=== PATIENT | male | born 1985 | race Caucasian/White ===

== ENCOUNTER 2017-02-28 12:59 | Emergency (ER) | payer OTHER ==
[~2017-02-28] VITALS: Ht 170.2 cm; Wt 101.2 kg
[~2017-02-28 12:59] MED LIST: PHEN95TA12
[2017-02-28 13:11] VITALS: BP 96/66
[2017-02-28] MEDS ORDERED: OXYcodone/APAP 5/325MG TABLET ONE (13:27)
[2017-02-28] MEDS ORDERED: OXYcodone/APAP 5/325MG TABLET PO ONE (13:30)
== END 2017-02-28 14:47 | disposition home or self-care (01) ==
LOC: ED 13:34
DX: S50.02XA Contusion of left elbow, initial encounter (principal); F17.200 Nicotine dependence, unspecified, uncomplicated; W03.XXXA Other fall on same level due to collision with another person, initial encounter; Y93.64 Activity, baseball; Y92.328 Other athletic field as the place of occurrence of the external cause; Y99.8 Other external cause status
CPT/HCPCS: 29105; 99284

== ENCOUNTER 2019-04-10 15:59 | Emergency (ER) | payer SELFPAY ==
[~2019-04-10] VITALS: Ht 170.2 cm; Wt 111.6 kg
[2019-04-10 16:05] VITALS: BP 148/96
--- NOTE | 2019-04-10 16:51 | NUR ---
AFTER PT SEEN FOR DENTAL PAIN, GIVEN DISCHARGE PAPERS. AMBULATED TO DISCHARGE DESK, STEADY GAIT
== END 2019-04-10 16:54 | disposition home or self-care (01) ==
LOC: ED 16:37
DX: K04.7 Periapical abscess without sinus (principal); F17.200 Nicotine dependence, unspecified, uncomplicated
CPT/HCPCS: 99283

== ENCOUNTER 2020-12-02 20:46 | Emergency (ER) | payer MEDICAID ==
[~2020-12-02] VITALS: Ht 170.2 cm; Wt 114.0 kg
--- NOTE | 2020-12-02 21:19 | NUR ---
CC OF [place] RIGHT SIDED TOOTH PAIN "20/10" IN SEVERITY. PT STATES SYMPTOMS STARTED EARLIER TODAY AND HE TOOK X10 TABS OF 220 MG ALEVE AND SOME CLOVE ESSENTIAL OIL WITH NO RELIEF FROM EITHER. MOTHER AT BEDSIDE. PT HAS HX OF DENTAL PAIN AND DENIES SEEING A DENTIST.
[2020-12-02] MEDS ORDERED: BUPIVACAINE/PF 0.25% INFIL ONE (21:30)
[2020-12-02] MEDS ORDERED: LIDOCAINE 2%, 20ML INFIL ONE (21:30)
[2020-12-02] MEDS ORDERED: BUPIVACAINE 0.25% ONE (21:35)
[2020-12-02] MEDS ORDERED: LIDOCAINE-MPF 1%, 2ML ONE (21:35)
[2020-12-02 22:04] VITALS: BP 155/99
== END 2020-12-02 22:05 | disposition home or self-care (01) ==
LOC: ED 21:18
DX: K02.9 Dental caries, unspecified (principal); F17.200 Nicotine dependence, unspecified, uncomplicated; Z88.0 Allergy status to penicillin
CPT/HCPCS: 64400; 99284